=== PATIENT | female | born 1975 | race Two or more races ===

== ENCOUNTER 2017-09-10 11:44 | Outpatient (CLI) | payer OTHER | END 2017-09-10 12:18 | disposition home or self-care (01) | LOC: RAD 11:44 | DX: M54.2 Cervicalgia (principal); M25.511 Pain in right shoulder ==

== ENCOUNTER → 2017-09-10 | Outpatient (CLI) | payer OTHER ==
[~2017-09-10] MED LIST: CATAFLAM50 MG PO; KETO10TA2 PO; MOTRIN IB200 MG; MOTRIN800 MG PO; PRENATAL1 TAB PO
== END | disposition home or self-care (01) ==
LOC: PPHC 10:40
DX: M54.2 Cervicalgia (principal)

== ENCOUNTER → 2018-01-25 11:11 | Outpatient (CLI) | payer OTHER | END | disposition home or self-care (01) | LOC: LAB 11:11 | DX: E78.4 Other hyperlipidemia (principal); R53.1 Weakness; M79.672 Pain in left foot ==

== ENCOUNTER 2018-01-25 11:46 | Outpatient (CLI) | payer OTHER | END 2018-01-25 12:03 | disposition home or self-care (01) | LOC: MAMO-SONO 11:46 | DX: Z12.31 Encounter for screening mammogram for malignant neoplasm of breast (principal); N64.4 Mastodynia ==

== ENCOUNTER → 2018-04-18 | Emergency (ER) | payer OTHER ==
[~2018-04-18] VITALS: Ht 172.7 cm; Wt 81.6 kg
== END | disposition home or self-care (01) ==
LOC: ER 09:21
DX: R10.2 Pelvic and perineal pain (principal)

== ENCOUNTER 2018-08-20 10:55 | Outpatient (CLI) | payer OTHER | END 2018-08-20 15:00 | disposition home or self-care (01) | LOC: RAD 10:55 | DX: J32.8 Other chronic sinusitis (principal) ==

== ENCOUNTER → 2018-10-21 | Outpatient (CLI) | payer OTHER | END | disposition home or self-care (01) | LOC: MAMO-SONO 09:34 | DX: N94.0 Mittelschmerz (principal); R10.2 Pelvic and perineal pain; N94.89 Other specified conditions associated with female genital organs and menstrual cycle; N63.10 Unspecified lump in the right breast, unspecified quadrant; N63.20 Unspecified lump in the left breast, unspecified quadrant; N64.59 Other signs and symptoms in breast; N64.89 Other specified disorders of breast ==

== ENCOUNTER 2018-10-30 06:42 | Outpatient (CLI) | payer OTHER | END 2018-10-30 06:48 | disposition home or self-care (01) | LOC: LAB 06:42 | DX: E03.8 Other specified hypothyroidism (principal); E78.00 Pure hypercholesterolemia, unspecified; Z00.00 Encounter for general adult medical examination without abnormal findings; I10 Essential (primary) hypertension; Z11.4 Encounter for screening for human immunodeficiency virus [HIV]; N39.0 Urinary tract infection, site not specified; Z12.11 Encounter for screening for malignant neoplasm of colon; E55.9 Vitamin D deficiency, unspecified; Z21 Asymptomatic human immunodeficiency virus [HIV] infection status; R79.89 Other specified abnormal findings of blood chemistry ==

== ENCOUNTER 2019-01-01 06:41 | Outpatient (CLI) | payer OTHER | END 2019-01-01 10:29 | disposition home or self-care (01) | LOC: LAB 06:41 | DX: E03.8 Other specified hypothyroidism (principal); Z01.818 Encounter for other preprocedural examination; Z00.00 Encounter for general adult medical examination without abnormal findings; I10 Essential (primary) hypertension; E78.00 Pure hypercholesterolemia, unspecified ==

== ENCOUNTER 2019-01-03 10:17 | Outpatient (CLI) | payer OTHER ==
[2019-01-03] MEDS ORDERED: ULTRACET PO (11:53)
[2019-01-03] MEDS ORDERED: MOTRIN IB200 MG PO (11:54)
[2019-01-03] MEDS ORDERED: DEMADEX10 MG PO (11:54)
== END 2019-01-03 10:23 | disposition home or self-care (01) ==
LOC: RAD 10:17
DX: N93.8 Other specified abnormal uterine and vaginal bleeding (principal)

== ENCOUNTER 2019-01-06 06:00 | Day surgery (SDC) | payer OTHER ==
[~2019-01-06 06:00] MED LIST changes: +DEMADEX10 MG PO; +MOTRIN IB200 MG PO; +ULTRACET PO
== END 2019-01-06 10:55 | disposition home or self-care (01) ==
LOC: CIR.AMB 06:00
DX: N93.8 Other specified abnormal uterine and vaginal bleeding (principal)

== ENCOUNTER → 2019-05-07 | Outpatient (CLI) | payer OTHER | END | disposition home or self-care (01) | LOC: RAD 10:03 | DX: M54.2 Cervicalgia (principal); M25.551 Pain in right hip ==

== ENCOUNTER 2019-09-08 08:58 | Outpatient (CLI) | payer OTHER | END 2019-09-08 15:00 | disposition home or self-care (01) | LOC: LAB 08:58 | DX: J11.1 Influenza due to unidentified influenza virus with other respiratory manifestations (principal); R05 Cough ==

== ENCOUNTER 2019-12-29 06:48 | Outpatient (CLI) | payer OTHER | END 2019-12-29 06:55 | disposition home or self-care (01) | LOC: LAB 06:48 | PROVIDERS: ATTEND Obstetrics & Gynecology | DX: E03.8 Other specified hypothyroidism (principal); Z00.00 Encounter for general adult medical examination without abnormal findings; I10 Essential (primary) hypertension; E78.00 Pure hypercholesterolemia, unspecified; N39.0 Urinary tract infection, site not specified; Z11.4 Encounter for screening for human immunodeficiency virus [HIV]; Z12.11 Encounter for screening for malignant neoplasm of colon; E55.9 Vitamin D deficiency, unspecified; Z21 Asymptomatic human immunodeficiency virus [HIV] infection status; R79.89 Other specified abnormal findings of blood chemistry ==

== ENCOUNTER 2019-12-30 13:15 | Outpatient (CLI) | payer OTHER | END 2019-12-30 13:29 | disposition home or self-care (01) | LOC: MAMO-SONO 13:15 | PROVIDERS: ATTEND Obstetrics & Gynecology | DX: Z12.31 Encounter for screening mammogram for malignant neoplasm of breast (principal); N64.59 Other signs and symptoms in breast; N64.89 Other specified disorders of breast; N63.10 Unspecified lump in the right breast, unspecified quadrant; N63.20 Unspecified lump in the left breast, unspecified quadrant; N94.0 Mittelschmerz; R10.2 Pelvic and perineal pain; N94.89 Other specified conditions associated with female genital organs and menstrual cycle ==

== ENCOUNTER 2020-02-05 14:47 | Outpatient (CLI) | payer OTHER | END 2020-02-05 15:04 | disposition home or self-care (01) | LOC: SONOGRAMA 14:47 | PROVIDERS: ATTEND Obstetrics & Gynecology | DX: E03.8 Other specified hypothyroidism (principal); E05.90 Thyrotoxicosis, unspecified without thyrotoxic crisis or storm ==

== ENCOUNTER → 2020-02-13 11:02 | Outpatient (CLI) | payer OTHER ==
[~2020-02-13 11:02] MED LIST changes: +ALEVE220 M1 PO; +NEURONTIN600 M1 PO
== END | disposition home or self-care (01) ==
LOC: LAB 11:02
PROVIDERS: ATTEND Urology
DX: N30.00 Acute cystitis without hematuria (principal)

== ENCOUNTER 2020-02-23 06:48 | Outpatient (CLI) | payer OTHER ==
[~2020-02-23 06:48] MED LIST changes: -ALEVE220 M1 PO; -NEURONTIN600 M1 PO
== END 2020-02-23 06:57 | disposition home or self-care (01) ==
LOC: LAB 06:48
PROVIDERS: ATTEND Obstetrics & Gynecology
DX: E03.8 Other specified hypothyroidism (principal); E05.90 Thyrotoxicosis, unspecified without thyrotoxic crisis or storm

== ENCOUNTER 2020-02-23 10:51 | Outpatient (CLI) | payer OTHER | END 2020-02-23 11:21 | disposition home or self-care (01) | LOC: SONOGRAMA 10:51 | PROVIDERS: ATTEND Pathology Anatomic Pathology & Clinical Pathology | DX: E04.1 Nontoxic single thyroid nodule (principal) ==

== ENCOUNTER 2020-03-08 06:15 | Inpatient (IN) | payer OTHER ==
[~2020-03-08] VITALS: Ht 172.7 cm; Wt 87.1 kg
[2020-03-08] MEDS ORDERED: ALEVE220 M1 PO (12:34)
[2020-03-18] MEDS ORDERED: NEURONTIN600 M1 PO (06:45)
[2020-03-18] MEDS ORDERED: KETO10TA2 PO (06:45)
== END 2020-03-18 10:08 | DRG 743 ==
LOC: SURH 11:00 → O/R 03-15 05:47 → OB/GYN 03-15 05:47
PROVIDERS: Urology; ADMIT Obstetrics & Gynecology; ATTEND Obstetrics & Gynecology
PROC: 0TSC0ZZ Reposition Bladder Neck, Open Approach (ICD-10-PCS; 2020-03-15)
PROC: 0UT90ZZ Resection of Uterus, Open Approach (ICD-10-PCS; principal; 2020-03-15 12:30)
PROC: 0UT70ZZ Resection of Bilateral Fallopian Tubes, Open Approach (ICD-10-PCS; 2020-03-15 12:30)
DX: N87.1 Moderate cervical dysplasia (principal); N93.8 Other specified abnormal uterine and vaginal bleeding; D28.2 Benign neoplasm of uterine tubes and ligaments; N39.3 Stress incontinence (female) (male)

== ENCOUNTER 2020-03-30 14:48 | Outpatient (CLI) | payer OTHER ==
[~2020-03-30 14:48] MED LIST changes: +ALEVE220 M1 PO; +NEURONTIN600 M1 PO
== END 2020-03-30 14:52 | disposition home or self-care (01) ==
LOC: LAB 14:48
PROVIDERS: ATTEND Obstetrics & Gynecology
DX: D64.89 Other specified anemias (principal)

== ENCOUNTER → 2020-05-19 06:20 | Outpatient (CLI) | payer OTHER | END | disposition home or self-care (01) | LOC: LAB 06:20 | PROVIDERS: ATTEND Radiology Diagnostic Radiology | DX: R10.30 Lower abdominal pain, unspecified (principal) ==

== ENCOUNTER 2020-05-21 08:33 | Outpatient (CLI) | payer OTHER | END 2020-05-21 16:44 | disposition home or self-care (01) | LOC: TOM 08:33 | PROVIDERS: ATTEND Obstetrics & Gynecology | DX: R10.2 Pelvic and perineal pain (principal); M54.5 Low back pain ==

== ENCOUNTER → 2020-08-19 06:20 | Outpatient (CLI) | payer OTHER | END | disposition home or self-care (01) | LOC: LAB 06:20 | PROVIDERS: ATTEND General Practice | DX: R05 Cough (principal); Z11.3 Encounter for screening for infections with a predominantly sexual mode of transmission ==

== ENCOUNTER 2021-03-28 08:00 | Outpatient (CLI) | payer OTHER | END 2021-03-28 08:30 | disposition home or self-care (01) | LOC: PPH VACUNA 08:00 | PROVIDERS: ATTEND Emergency Medicine Pediatric Emergency Medicine | DX: Z23 Encounter for immunization (principal) ==

== ENCOUNTER → 2021-05-05 08:25 | Outpatient (CLI) | payer OTHER | END | disposition home or self-care (01) | LOC: LAB 08:25 | PROVIDERS: ATTEND Surgery | DX: E04.2 Nontoxic multinodular goiter (principal) ==

== ENCOUNTER 2021-05-06 14:22 | Outpatient (CLI) | payer OTHER | END 2021-05-06 14:33 | disposition home or self-care (01) | LOC: SONOGRAMA 14:22 | PROVIDERS: ATTEND Surgery | DX: E04.2 Nontoxic multinodular goiter (principal) ==

== ENCOUNTER 2021-11-08 06:34 | Outpatient (CLI) | payer OTHER | END 2021-11-08 06:35 | disposition home or self-care (01) | LOC: LAB 06:34 | PROVIDERS: ATTEND Obstetrics & Gynecology | DX: Z00.00 Encounter for general adult medical examination without abnormal findings (principal); I10 Essential (primary) hypertension; E03.9 Hypothyroidism, unspecified; E78.00 Pure hypercholesterolemia, unspecified; N91.0 Primary amenorrhea; E55.9 Vitamin D deficiency, unspecified; Z21 Asymptomatic human immunodeficiency virus [HIV] infection status; R79.9 Abnormal finding of blood chemistry, unspecified; R79.89 Other specified abnormal findings of blood chemistry ==

== ENCOUNTER 2022-01-20 07:30 | Outpatient (CLI) | payer OTHER | END 2022-01-20 07:40 | disposition home or self-care (01) | LOC: MAMO-SONO 07:30 | PROVIDERS: ATTEND Obstetrics & Gynecology | DX: Z12.31 Encounter for screening mammogram for malignant neoplasm of breast (principal); N63.0 Unspecified lump in unspecified breast; N64.59 Other signs and symptoms in breast; N64.9 Disorder of breast, unspecified; R10.2 Pelvic and perineal pain; N94.0 Mittelschmerz; N94.89 Other specified conditions associated with female genital organs and menstrual cycle; R22.1 Localized swelling, mass and lump, neck ==

== ENCOUNTER 2022-03-15 08:00 | Outpatient (CLI) | payer OTHER | END 2022-03-15 08:05 | disposition home or self-care (01) | LOC: PPH VACUNA 08:00 | PROVIDERS: ATTEND Emergency Medicine Pediatric Emergency Medicine | DX: Z23 Encounter for immunization (principal) ==

== ENCOUNTER 2022-05-17 09:26 | Outpatient (CLI) | payer OTHER | END 2022-05-17 09:36 | disposition home or self-care (01) | LOC: PPH VACUNA 09:26 | PROVIDERS: ATTEND Emergency Medicine Pediatric Emergency Medicine | DX: Z23 Encounter for immunization (principal) ==

== ENCOUNTER → 2022-12-06 | Outpatient (CLI) | payer OTHER | END | disposition home or self-care (01) | LOC: MRI 09:02 | PROVIDERS: ATTEND Physical Medicine & Rehabilitation Sports Medicine | DX: M54.2 Cervicalgia (principal); M54.12 Radiculopathy, cervical region | CPT/HCPCS: 72141 ==

== ENCOUNTER 2023-02-15 06:35 | Outpatient (CLI) | payer OTHER | END 2023-02-15 06:37 | disposition home or self-care (01) | LOC: LAB 06:35 | PROVIDERS: ATTEND Obstetrics & Gynecology | DX: Z00.00 Encounter for general adult medical examination without abnormal findings (principal); I10 Essential (primary) hypertension; E03.9 Hypothyroidism, unspecified; E78.00 Pure hypercholesterolemia, unspecified; N39.0 Urinary tract infection, site not specified; Z11.4 Encounter for screening for human immunodeficiency virus [HIV]; Z12.11 Encounter for screening for malignant neoplasm of colon; E55.9 Vitamin D deficiency, unspecified; Z21 Asymptomatic human immunodeficiency virus [HIV] infection status; R79.9 Abnormal finding of blood chemistry, unspecified; R78.89 Finding of other specified substances, not normally found in blood ==

== ENCOUNTER → 2023-03-01 | Outpatient (CLI) | payer OTHER | END | disposition home or self-care (01) | LOC: PPH VACUNA | PROVIDERS: ATTEND Emergency Medicine Pediatric Emergency Medicine | DX: Z23 Encounter for immunization (principal) | CPT/HCPCS: 90686; G0008 ==

== ENCOUNTER 2023-04-04 07:27 | Outpatient (CLI) | payer OTHER | END 2023-04-04 07:32 | disposition home or self-care (01) | LOC: MAMO-SONO 07:27 | PROVIDERS: ATTEND Obstetrics & Gynecology | DX: N63.0 Unspecified lump in unspecified breast (principal); N64.59 Other signs and symptoms in breast; N64.9 Disorder of breast, unspecified; Z12.31 Encounter for screening mammogram for malignant neoplasm of breast; N94.0 Mittelschmerz; R10.2 Pelvic and perineal pain; N94.89 Other specified conditions associated with female genital organs and menstrual cycle ==

== ENCOUNTER 2023-04-05 07:20 | Outpatient (CLI) | payer OTHER | END 2023-04-05 07:22 | disposition home or self-care (01) | LOC: SONOGRAMA 07:20 | PROVIDERS: ATTEND Obstetrics & Gynecology | DX: E04.8 Other specified nontoxic goiter (principal) ==

== ENCOUNTER 2023-05-23 06:20 | Outpatient (CLI) | payer OTHER | END 2023-05-23 06:21 | disposition home or self-care (01) | LOC: LAB 06:20 | PROVIDERS: ATTEND General Practice | DX: N95.1 Menopausal and female climacteric states (principal); Z73.3 Stress, not elsewhere classified; Z88.5 Allergy status to narcotic agent; Z91.013 Allergy to seafood ==

== ENCOUNTER 2023-08-30 16:26 | Emergency (ER) | payer OTHER ==
[~2023-08-30] VITALS: Ht 170.2 cm; Wt 86.2 kg
[2023-08-30] MEDS ORDERED: DEXAMETHASONE SODIUM PHOSPHATE 4 MG/ML VIAL IM ONE (16:45)
[2023-08-30] MEDS ORDERED: KETOROLAC TROMETHAMINE 60 MG VIAL IM ONE (16:45)
[2023-08-30] MEDS ORDERED: DICLOFENAC SODI75 MG PO (18:24)
[2023-08-30] MEDS ORDERED: NORFLEX100MG PO (18:24)
== END 2023-08-30 18:37 | disposition home or self-care (01) ==
LOC: ER 16:26
DX: S19.9XXA Unspecified injury of neck, initial encounter (principal); V49.88XA Car occupant (driver) (passenger) injured in other specified transport accidents, initial encounter; Y93.89 Activity, other specified; Y92.89 Other specified places as the place of occurrence of the external cause; Y99.8 Other external cause status; Z88.1 Allergy status to other antibiotic agents; Z88.5 Allergy status to narcotic agent; Z91.013 Allergy to seafood

== ENCOUNTER 2024-04-17 13:30 | Outpatient (CLI) | payer OTHER ==
[~2024-04-17 13:30] MED LIST changes: +DICLOFENAC SODI75 MG PO; +NORFLEX100MG PO
== END 2024-04-17 13:45 | disposition home or self-care (01) ==
LOC: MAMO-SONO 13:30
PROVIDERS: ATTEND Obstetrics & Gynecology
DX: N63 Unspecified lump in breast (principal); N64.59 Other signs and symptoms in breast; N64.9 Disorder of breast, unspecified; E04.1 Nontoxic single thyroid nodule

== ENCOUNTER 2024-04-28 07:37 | Outpatient (CLI) | payer OTHER ==
[2024-04-28 08:14] LABS: HEMATOCRIT 36.6 % (36.0-45.00); HEMOGLOBIN 12.5 g/dL (12.0-15.00); MEAN CELL VOLUME 95.6 fL (80.00-100.00); MEAN CORPUSCULAR HEMOGLOBIN 32.7 pg (27.00-32.0); MEAN CORPUSCULAR HGB CONC 34.2 g/dl (32.0-36.0); PLATELET COUNT 254 K/uL (150-450); RED BLOOD COUNT 3.82 M/uL (4.00-6.00); RED CELL DISTRIBUTION WIDTH 12.7 % (11.5-14.5)
[2024-04-28 08:47] LABS: ALBUMIN 3.5 gm/dL (3.4-5.0); BILIRUBIN TOTAL 0.54 mg/dL (0.3-1.2); CALCIUM 8.5 mg/dL (8.5-10.1); CHOL HDL RATIO 1.8 (0-5.0); CREATININE SERUM 0.65 mg/dL (0.55-1.02); GFR 98.13; GLOBULINA 3.2 G/DL (2.4-3.5); POTASSIUM 4.16 mEq/L (3.5-5.1); T4 FREE 0.95 NG/ML (0.76-1.46); TOTAL PROTEIN 6.7 gm/dL (6.4-8.2); TSH 1.75 uIU/mL (0.358-3.74)
[2024-04-29 06:50] LABS: ob NEGATIVE (NEGATIVE)
[2024-04-29 10:19] LABS: PH,URINE 6.5 (5.0-8.0); URINE APPEARANCE Clear; URINE BILIRRUBIN Negative (NEGATIVE); URINE BLOOD Negative; URINE COLOR Yellow; URINE GLUCOSE Negative (NEGATIVE); URINE KETONE Negative (NEGATIVE); URINE LEUKOCYTE Negative; URINE NITRATE Negative; URINE PROTEIN Negative (NEGATIVE); URINE UROBILINOGEN 0.2 E.U./dl
[2024-04-29 10:24] LABS: URINE BACTERIA 70.5 uL (0.0-1933); URINE EPITHELIAL CELLS 2.7 uL (0.0-38.8)
[2024-04-29 10:31] LABS: URINE RBC 1.2 uL (0.0-20.8); URINE WBC 1.5 uL (0.0-23.2)
== END 2024-04-28 09:26 | disposition home or self-care (01) ==
LOC: LAB 07:37
PROVIDERS: ATTEND Obstetrics & Gynecology
DX: E03.9 Hypothyroidism, unspecified (principal); E78.00 Pure hypercholesterolemia, unspecified; I10 Essential (primary) hypertension; Z11.4 Encounter for screening for human immunodeficiency virus [HIV]; E55.9 Vitamin D deficiency, unspecified; Z21 Asymptomatic human immunodeficiency virus [HIV] infection status; R79.9 Abnormal finding of blood chemistry, unspecified; R79.89 Other specified abnormal findings of blood chemistry; Z00.00 Encounter for general adult medical examination without abnormal findings

== ENCOUNTER 2024-06-12 07:57 | Outpatient (CLI) | payer OTHER | END 2024-06-12 08:01 | disposition home or self-care (01) | LOC: SONOGRAMA 07:57 | PROVIDERS: ATTEND Pathology Anatomic Pathology & Clinical Pathology | DX: E04.2 Nontoxic multinodular goiter (principal); D34 Benign neoplasm of thyroid gland; E07.89 Other specified disorders of thyroid ==

== ENCOUNTER 2024-07-28 08:34 | Outpatient (CLI) | payer OTHER ==
[2024-07-29 10:04] LABS: HEPATITIS B CORE IGG Negative (Negative); HEPATITIS B SURFACE ANTIBODY Reactive (.); HEPATITIS C VIRUS ANTIBODY Non Reactive (Non Reactive)
== END 2024-07-28 23:00 | disposition home or self-care (01) ==
LOC: LAB 08:34
DX: A64 Unspecified sexually transmitted disease (principal); B19.9 Unspecified viral hepatitis without hepatic coma

== ENCOUNTER 2024-09-15 05:00 | Emergency (ER) | payer OTHER ==
[~2024-09-15] VITALS: Ht 172.7 cm; Wt 86.2 kg
[2024-09-15] MEDS ORDERED: FAMOTIDINE/PF 20 MG/2 ML VIAL IV PUSH STA (06:21)
[2024-09-15] MEDS ORDERED: ONDANSETRON 4 MG TAB.RAPDIS PO STA (06:21)
[2024-09-15] MEDS ORDERED: KETOROLAC TROMETHAMINE 30 MG VIAL IV STA (06:22)
[2024-09-15] MEDS ORDERED: ONDANSETRON HCL 2 MG/ML VIAL IV STA (06:26)
[2024-09-15 06:39] LABS: HEMATOCRIT 39.8 % (36.0-45.00); HEMOGLOBIN 13.6 g/dL (12.0-15.00); MEAN CELL VOLUME 95.8 fL (80.00-100.00); MEAN CORPUSCULAR HEMOGLOBIN 32.7 pg (27.00-32.0); MEAN CORPUSCULAR HGB CONC 34.2 g/dl (32.0-36.0); PLATELET COUNT 233 K/uL (150-450); RED BLOOD COUNT 4.15 M/uL (4.00-6.00); RED CELL DISTRIBUTION WIDTH 12.7 % (11.5-14.5)
[2024-09-15 07:11] LABS: INR 0.95; PARTIAL THROMBOPLASTIN TIME 27.1 SECONDS (22.0-34.0); PROTHROMBIN TIME 10.4 SECONDS (9.0-11.5)
[2024-09-15 07:34] LABS: ALBUMIN 3.6 gm/dL (3.4-5.0); BILIRUBIN TOTAL 0.35 mg/dL (0.3-1.2); CALCIUM 9.1 mg/dL (8.5-10.1); CREATININE SERUM 0.73 mg/dL (0.55-1.02); GFR 85.45; GLOBULINA 3.5 G/DL (2.4-3.5); POTASSIUM 4.74 mEq/L (3.5-5.1); TOTAL PROTEIN 7.1 gm/dL (6.4-8.2)
== END 2024-09-15 12:05 | disposition home or self-care (01) ==
LOC: ER 05:03
PROVIDERS: General Practice
DX: M94.0 Chondrocostal junction syndrome [Tietze] (principal); R07.89 Other chest pain; R53.81 Other malaise; Z88.8 Allergy status to other drugs, medicaments and biological substances; Z91.013 Allergy to seafood

== ENCOUNTER 2025-01-29 06:19 | Outpatient (CLI) | payer OTHER ==
[2025-01-29 07:38] LABS: BASO % 0.6 % (0.1-1.2); EOS # 0.11 (0.04-0.54); EOS % 1.6 % (0.7-7.0); LYMPH # 3.12 (1.18-3.74); LYMPH % 44.7 % (19.3-53.1); MEAN PLATELET VOLUME 9.10 fl (9.4-12.4); MONO # 0.57 (0.24-0.82); MONO % 8.2 % (4.7-12.5); NEUT # 3.11 (1.56-6.13); NEUT % 44.5 % (34.0-71.1); RED CELL DISTRIBUTION WIDTH 12.3 % (11.6-14.4)
[2025-01-29 08:45] LABS: ALT/SGPT 19.0 U/L (12-78); AST/SGOT 7.0 U/L (15-37); BILIRUBIN TOTAL 0.4 mg/dL (0.3-1.2); BUN CREA RATIO 17.0 (7.0-25.0); CHOL HDL RATIO 1.8 (0-5.0); CREATININE SERUM 0.72 mg/dL (0.55-1.02); GFR 86.82; GLOBULINA 3.3 G/DL (2.4-3.5); GLUCOSE FASTING 89.0 mg/dL (65-100); HDL 88.0 mg/dl (40-60); LDL 65.0 mg/dl (0-130); OSMOLALITY SERUM 282.0 MOSM/KG (275-295); T3 UPTAKE 33.0 % (30-39); T4 TOTAL 8.22 UG/DL (4.8-13.9); TSH 1.46 uIU/mL (0.358-3.74); VLDL 9.0 (0-39)
[2025-01-29 14:18] LABS: CORTISOL 9.94 ug/dl; T3 TOTAL 1.24 ng/ml (0.846-2.02); VITAMIN D3 25 HYDROXY 29.36 ng/ml (30-120)
[2025-01-30 09:08] LABS: DHEA-SULFATE 176.0 ug/dL (41.2-243.7); ESTRADIOL SERUM 96.0 pg/mL (.); LEUTEINIZING HORMONE 2.3 mIU/mL (.); PROGESTERONA 13.6 ng/mL (.); PROLACTIN 15.1 ng/mL (4.8-33.4)
[2025-01-31 17:09] LABS: T T 31.0 ng/dL (4-50); test free 2.2 pg/mL (0.0-4.2)
== END 2025-01-29 06:23 | disposition home or self-care (01) ==
LOC: LAB 06:19
PROVIDERS: ATTEND Obstetrics & Gynecology
DX: Z00.00 Encounter for general adult medical examination without abnormal findings (principal); I10 Essential (primary) hypertension; E03.9 Hypothyroidism, unspecified; E78.00 Pure hypercholesterolemia, unspecified; N91.0 Primary amenorrhea; E55.9 Vitamin D deficiency, unspecified; Z21 Asymptomatic human immunodeficiency virus [HIV] infection status; R79.9 Abnormal finding of blood chemistry, unspecified; R79.89 Other specified abnormal findings of blood chemistry

== ENCOUNTER 2025-04-28 07:58 | Outpatient (CLI) | payer OTHER | END 2025-04-28 08:06 | disposition home or self-care (01) | LOC: MAMO-SONO 07:58 | PROVIDERS: ATTEND Surgery | DX: N60.11 Diffuse cystic mastopathy of right breast (principal); N60.12 Diffuse cystic mastopathy of left breast ==

== ENCOUNTER → 2025-06-08 06:16 | Outpatient (CLI) | payer OTHER ==
[2025-06-08 08:19] LABS: T4 FREE 1.03 NG/ML (0.76-1.46); TSH 2.36 uIU/mL (0.358-3.74)
== END | disposition home or self-care (01) ==
LOC: LAB 06:16
PROVIDERS: ATTEND Otolaryngology
DX: E03.9 Hypothyroidism, unspecified (principal); E04.2 Nontoxic multinodular goiter